=== PATIENT | female | born 1960 | race African-American/Black ===

== ENCOUNTER → 2016-06-25 | Day surgery (SDC) | payer OTHER ==
[~2016-06-25] MED LIST: ALEVE220 M1 PO; FLONASE ALLERG9.9 ML; ZESTRIL5 MG PO; ZYRTEC10 M1 PO
--- NOTE | ~2016-06-25 | OR ---
Unit #: [id number] #: [id number] Patient: TIO HAWKINS [id number] [address] [id number] [id number] MR#: [id number] NAME: TIO HAWKINS ROOM: Date of Procedure: 06/25/2016 Admission Date: 06/25/2016 Surgeon: Raghav Espinal M.D. : 1960 Attending Physician: Raghav Espinal M.D. OPERATIVE REPORT PREOPERATIVE DIAGNOSES Neck pain and cervical facet disease. POSTOPERATIVE DIAGNOSES Neck pain and cervical facet disease. PROCEDURE PERFORMED Cervical facet injections, diagnostic and therapeutic x2 levels with intravenous sedation under fluoroscopic guidance for needle localization. HISTORY The patient is a 56-year-old female with worsening neck and right periscapular pain that has not settled with rehabilitative treatment and medical management and trigger point injections. Workup did demonstrate significant right-sided C5-C6 and C6-C7 facet disease. Physical examination is consistent with the facet etiology for her pain. Plan is for trial of diagnostic and therapeutic injections at this level. DESCRIPTION OF PROCEDURE The patient was placed in a seated position. Standard monitors were applied. A total 4 mg of Versed were given in divided doses for anxiolysis and sedation, which were adequate. Vital signs remained stable. Sterile prep and drape then of the cervical spine was performed. The skin then to the right of midline overlying the C5-C6 and C6-C7 facet was localized with 1% lidocaine. At each of these levels, a 22-gauge Quincke point spinal needle was advanced with biplanar fluoroscopic guidance to bring the needle tip to the edge of those respective facet joints. After confirming proper positioning with fluoroscopy, a dose of 1 mL of a mixture of 80 mg of Depo-Medrol and 1 mL of 0.25% bupivacaine was deposited at each of the facet joints, 0.5 mL within the joint and 0.5 mL just outside the joint. The patient tolerated the procedure otherwise well and was discharged to the recovery room in stable condition. Dictated by... Gerda Clark/noemí TD: 06/25/2016 09:05 JOB #: [id number] Unit #: [id number] #: [id number] Patient: TIO HAWKINS Yady OPERATIVE REPORT Page 1 of 1 X Raghav Espinal MD X PROCEDURE OPERATIVE NOTE
== END | disposition home or self-care (01) ==
LOC: CCSC 07:54
DX: M53.82 Other specified dorsopathies, cervical region (principal); E66.01 Morbid (severe) obesity due to excess calories
CPT/HCPCS: J1040; J2250